=== PATIENT | male | born 1975 | race American Indian/Alaskan Native ===

== ENCOUNTER 2016-12-01 19:14 | Emergency (ER) | payer MEDICAID ==
[2016-12-01 22:35] VITALS: BP 127/85
== END 2016-12-01 22:35 | disposition home or self-care (01) ==
LOC: ED 19:14
DX: S82.302A Unspecified fracture of lower end of left tibia, initial encounter for closed fracture (principal); S93.422A Sprain of deltoid ligament of left ankle, initial encounter; W01.0XXA Fall on same level from slipping, tripping and stumbling without subsequent striking against object, initial encounter; Y92.89 Other specified places as the place of occurrence of the external cause; Y93.89 Activity, other specified; Y99.8 Other external cause status

== ENCOUNTER 2017-04-01 18:16 | Emergency (ER) | payer SELFPAY ==
[~2017-04-01] VITALS: Ht 185.4 cm; Wt 101.2 kg
[2017-04-01 18:17] VITALS: BP 149/97
== END 2017-04-01 19:41 | disposition left against medical advice (07) ==
LOC: ED 18:16
DX: Z53.21 Procedure and treatment not carried out due to patient leaving prior to being seen by health care provider (principal)